=== PATIENT | female | born 1955 | race Caucasian/White ===

== ENCOUNTER 2018-07-24 09:31 | Emergency (ER) | payer OTHER ==
--- NOTE | 2018-07-24 09:57 | EDPHY ---
H & P Stated Complaint: Walker hit rib, L rib pain Time Seen by Provider: 07/24/18 09:34 HPI/ROS: CHIEF COMPLAINT: Left chest wall pain HISTORY OF PRESENT ILLNESS: The patient presents the emergency department with complaints of left chest wall pain after she sustained a mechanical fall while using her walker. She did not strike her head or lose consciousness. She has no complaints of headache or neck pain. She complains of moderate left-sided rib pain worsened with palpation and inspiration. The patient denies any abdominal pain, lower extremity complaints or additional traumatic complaints. The patient is not anticoagulated. She denies any acute medical complaints such as vomiting, fever or cough. REVIEW OF SYSTEMS: A comprehensive 10 point review of systems is otherwise negative aside from elements mentioned in the history of present illness. Source: Patient Exam Limitations: No limitations - Personal History Current Tetanus Diphtheria and Acellular Pertussis (TDAP): Yes - Medical/Surgical History Hx Asthma: No Hx Chronic Respiratory Disease: No Hx Diabetes: Yes Hx Cardiac Disease: No Hx Renal Disease: No Hx Cirrhosis: No Hx Alcoholism: No Hx HIV/AIDS: No Hx Splenectomy or Spleen Trauma: No Other PMH: htn, dm, giorgio - Social History Smoking Status: Never smoked - Physical Exam Exam: General Appearance: Alert, no distress Head: Atraumatic Eyes: Pupils equal, round, reactive ENT, Mouth: No hemotympanum, no oral trauma Neck: Nontender, trachea midline Respiratory: Tenderness to palpation left lateral chest wall, no subcutaneous air, lungs clear bilaterally Cardiovascular: Regular rate and rhythm Abdomen: Abdomen is soft and nontender, pelvis stable Skin: No lacerations, No abrasion Back: No midline T/L/S pain Extremities: Nontender, full range of motion Neurological: GCS 15, moves all 4 extremities with 5/5 strength Constitutional: Initial Vital Signs Temperature (C) 36.7 C 07/24/18 09:36 Heart Rate 99 07/24/18 09:36 Respiratory Rate 18 07/24/18 09:36 Blood Pressure 177/112 H 07/24/18 09:36 O2 Sat (%) 95 07/24/18 09:36 O2 Delivery Mode Room Air Allergies/Adverse Reactions: No Known Allergies Allergy (Unverified 07/24/18 09:36) Home Medications: Medication Instructions Recorded Effexor Xr 07/24/18 Medical Decision Making - Diagnostics Imaging Results: Imaging Impressions Ribs w/Chest X-Ray 07/24/18 09:38 Impression: 1. Negative left rib series. 2. No acute abnormality within the chest. ED Course/Re-evaluation: The patient presents the ED for evaluation of left chest wall pain. There is mild rib tenderness noted on exam. The patient was taken for chest x-ray which demonstrates no evidence of rib fracture or pneumothorax. Re-evaluated the patient at 10:35 a.m.. She has been informed of the possibility of a occult rib fracture. She has been informed of customary treatment in aftercare instructions. Differential Diagnosis: Differential diagnosis considered includes rib fracture, chest wall contusion, pneumothorax, hemothorax - Data Points Medications Given: Discontinued Medications Ibuprofen (Motrin) 600 mg PO EDNOW ONE Stop: 07/24/18 10:20 Last Admin: 07/24/18 10:22 Dose: 600 mg Departure - Departure Disposition: Home, Routine, Self-Care Clinical Impression: Chest wall contusion Condition: Good Instructions: Rib Fracture (ED) Additional Instructions: 1. Your x-ray demonstrates no evidence of an obvious displaced rib fracture however you certainly could have a hairline rib fracture not noted on the x-ray. 2. Return to the ED for markedly worsening symptoms of pain or difficulty breathing. 3. Tylenol and ibuprofen as needed for pain. 4. Please follow up with your regular physician as needed. Referrals: Patient,NotPresent [Primary Care Provider] - As per Instructions
[2018-07-24] MEDS ORDERED: IBUPROFEN 600 MG TAB PO ONE (10:19)
[2018-07-24 10:42] VITALS: BP 164/78
== END 2018-07-24 10:40 | disposition home or self-care (01) ==
DX: S20.212A Contusion of left front wall of thorax, initial encounter (principal); W19.XXXA Unspecified fall, initial encounter; Y99.8 Other external cause status